=== PATIENT | male | born 1945 | race Caucasian/White ===

== ENCOUNTER → 2016-04-05 | Outpatient (CLI) | payer MEDICARE, OTHER ==
--- NOTE | 2016-04-04 09:21 | NUR ---
NN PT STATES HE HAD CALLED AND CANCELLED HIS COLONOSCOPY. HE HAD AN UNEXPECTED SURGERY COME UP ON SATURDAY AND IS NOT RECOVERED TO PROCEED WITH COLONOSCOPY AT THIS TIME. HE WILL BE OUT OF TOWN FOR 4 WEEKS AND WILL THEN RESCHEDULE AFTER THAT.
== END ==
LOC: EDSTATUS 07:30 → SCU 08:00
PROVIDERS: ATTEND Family Medicine
DX: Z53.9 Procedure and treatment not carried out, unspecified reason (principal)

== ENCOUNTER 2016-07-05 05:56 | Day surgery (SDC) | payer MEDICARE, OTHER ==
[~2016-07-05] VITALS: Ht 180.3 cm; Wt 117.1 kg
[~2016-07-05 05:56] MED LIST: AMLO5TAB2 PO; ATOR20TA59 PO; HYDR25TA PO; INSU100I3; INSU100V8 INJ; LOSA100T44 PO; MELO-267 PO; METO100T5 PO
[2016-07-05 06:05] VITALS: BP 157/71; PULSE 63; RESP 16; TEMP 99.1; O2SAT 92
[2016-07-05 06:33] VITALS: Ht 180.3 cm; Wt 117.1 kg
--- NOTE | 2016-07-05 06:57 | ANESPREOP ---
Anesthesia Record Date and Time DATE: 07/05/16 TIME: 06:55 Proposed Surgical Procedure COLONOSCOPY NPO since: 07/04 Allergies: Coded Allergies: oxycodone (Verified Allergy, Mild, ITCHING, 07/05/16) Penicillins (Verified Allergy, Unknown, RASH, 07/05/16) metformin (Verified Adverse Reaction, Intermediate, swollen anus, 07/05/16) Ht/Wt/BMI Height: 5 ' 11.00 " Weight: 117.100 kg BMI: 36.0 kg/m2 Vital Signs Date Time Temp Pulse Resp B/P Pulse Ox O2 Delivery O2 Flow Rate FiO2 07/05/16 06:05 99.1 63 16 157/71 92 Room Air Medications Inpatient Medications Current Medications Medications (Trade) Dose Ordered Sig/Josselyn Start Time Stop Time Status Last Admin Dose Admin Lactated Ringer's (Lactated Ringers) 1,000 ml @ 50 mls/hr Q20H 07/05/16 07:00 07/05/16 06:43 50 MLS/HR Amlodipine Besylate (Amlodipine Besylate) 5 Mg Tablet, 2 TAB PO DAILY, (Reported ) Last Taken: on 07/04/162229 Atorvastatin Calcium (Atorvastatin Calcium) 20 Mg Tablet, 1 TAB PO DAILY, (Reported) Last Taken: on 07/04/16729 Hydrochlorothiazide (Hydrochlorothiazide) 25 Mg Tablet, 1 TAB PO DAILY, (Reported) Last Taken: on 07/04/16729 Insulin Aspart (Novolog Flexpen) 1 Unit Pen, ( Reported) Last Taken: on 07/04/16 1400 Insulin Glargine,Hum.rec.anlog (Lantus) 100 Unit/Ml Inj, 40-50 UNIT INJ AMI, (Reported) Last Taken: on 07/04/16729 Losartan Potassium (Losartan Potassium) 100 Mg Tablet, 1 TAB PO DAILY, (Reported) Last Taken: on 07/04/16729 Meloxicam (Meloxicam) 15 Mg Tablet, 1 TAB PO DAILY, (Reported) Last Taken: on 07/01/16 Metoprolol Tartrate (Metoprolol Tartrate) 100 Mg Tablet, 2 TAB PO DAILY, (Reported) Last Taken: on 07/04/162229 Currently on Beta Tenzin: Yes Beta Tenzin Last Taken: 07/04/162229 Medical/Surgical History Anesthesia PMH: Reports: *Diabetes, *Hypertension, Arthritis, Sleep Apnea, Denies: Anesthesia Reactions (NO AIRWAY ISSUES, NAUSEA), Cancer, Clotting Problems, Glaucoma, Malignant Hyperthermia, Thyroid Disease Smoking Status: Never smoker Has pt. smoked today?: No Use Chewing Tobacco?: No Second Hand Exposure: No Substance Use Type: does not use Alcohol Intake: daily (glass of wine per day) Past Surgical History Orthopedic Surgeries: Yes - CTR-R, KNEE SCOPE-R Abdominal Surgeries: Genitourinary Surgeries: Cardiac Surgeries: Endocrine Surgeries: Reproductive Surgeries: Neurological Surgeries: Ear Surgeries: Nose Surgeries: Throat Surgeries: Yes - TONSILS-AGE 10 Other Surgeries: Yes - BUNIONECTOMY,ANAL FISTULA Anesthesia Adverse Reactions: FOUND nausea and vomiting Airway Assessment Mallampati Score: II TMD: 3 Fingerbreadths Neck Extension: Good Overall Assessment: No Airway Concerns ASA: 2 Plan Anesthesia Plan: TIVA Discussion Discussed risks/options/alternatives of anesthesia and questions answered. Patient consents. Nursing pain assessment noted. Attestation Statement Prior to the delivery of any anesthetic medication, I examined the patient, developed the plan, obtained the patient's consent and discussed the risk and benefits of the procedure with the patient/guardian. IVAN POMPA July 05, 2016 06:57
[2016-07-05] MEDS ORDERED: LR 1,000 ML IV SCH (07:00)
[2016-07-05] MEDS ORDERED: LIDOCAINE 1% (10mg/ml) 2ml SDV INJ ONE (07:00)
[2016-07-05] MEDS ORDERED: LIDOCAINE 1% (10mg/ml) 2ml SDV ONE (07:12)
[2016-07-05] MEDS ORDERED: PROPOFOL 500mg 50 ML IV ONE (07:12)
--- NOTE | 2016-07-05 07:19 | ANESPREOP ---
Anesthesia Record Date and Time DATE: 07/05/16 TIME: 07:15 Proposed Surgical Procedure COLONOSCOPY NPO since: 07/04 Allergies: Coded Allergies: oxycodone (Verified Allergy, Mild, ITCHING, 07/05/16) Penicillins (Verified Allergy, Unknown, RASH, 07/05/16) metformin (Verified Adverse Reaction, Intermediate, swollen anus, 07/05/16) Ht/Wt/BMI Height: 5 ' 11.00 " Weight: 117.100 kg BMI: 36.0 kg/m2 Vital Signs Date Time Temp Pulse Resp B/P Pulse Ox O2 Delivery O2 Flow Rate FiO2 07/05/16 06:05 99.1 63 16 157/71 92 Room Air Medications Inpatient Medications Current Medications Medications (Trade) Dose Ordered Sig/Josselyn Start Time Stop Time Status Last Admin Dose Admin Lactated Ringer's (Lactated Ringers) 1,000 ml @ 50 mls/hr Q20H 07/05/16 07:00 07/05/16 06:43 50 MLS/HR Amlodipine Besylate (Amlodipine Besylate) 5 Mg Tablet, 2 TAB PO DAILY, (Reported ) Last Taken: on 07/04/162229 Atorvastatin Calcium (Atorvastatin Calcium) 20 Mg Tablet, 1 TAB PO DAILY, (Reported) Last Taken: on 07/04/16729 Hydrochlorothiazide (Hydrochlorothiazide) 25 Mg Tablet, 1 TAB PO DAILY, (Reported) Last Taken: on 07/04/16729 Insulin Aspart (Novolog Flexpen) 1 Unit Pen, ( Reported) Last Taken: on 07/04/16 1400 Insulin Glargine,Hum.rec.anlog (Lantus) 100 Unit/Ml Inj, 40-50 UNIT INJ AMI, (Reported) Last Taken: on 07/04/16729 Losartan Potassium (Losartan Potassium) 100 Mg Tablet, 1 TAB PO DAILY, (Reported) Last Taken: on 07/04/16729 Meloxicam (Meloxicam) 15 Mg Tablet, 1 TAB PO DAILY, (Reported) Last Taken: on 07/01/16 Metoprolol Tartrate (Metoprolol Tartrate) 100 Mg Tablet, 2 TAB PO DAILY, (Reported) Last Taken: on 07/04/162229 Currently on Beta Tenzin: Yes Beta Tenzin Last Taken: 07/04/162229 Medical/Surgical History Anesthesia PMH: Reports: *Diabetes, *Hypertension, Arthritis, Sleep Apnea, Denies: Anesthesia Reactions (NO AIRWAY ISSUES, NAUSEA), Cancer, Clotting Problems, Glaucoma, Malignant Hyperthermia, Thyroid Disease Smoking Status: Never smoker Has pt. smoked today?: No Use Chewing Tobacco?: No Second Hand Exposure: No Substance Use Type: does not use Substance last used: unknown Alcohol Intake: daily (glass of wine per day) Last Drink: unknown Past Surgical History Orthopedic Surgeries: Yes - CTR-R, KNEE SCOPE-R Abdominal Surgeries: Genitourinary Surgeries: Cardiac Surgeries: Endocrine Surgeries: Reproductive Surgeries: Neurological Surgeries: Ear Surgeries: Nose Surgeries: Throat Surgeries: Yes - TONSILS-AGE 10 Other Surgeries: Yes - BUNIONECTOMY,ANAL FISTULA Anesthesia Adverse Reactions: FOUND nausea and vomiting Family Hx of Anesthesia Advers: none Hx of Motion Sickness: No Pertinent Findings EKG Rhythm: Sinus Rhythm Physical Exam Respiratory: Bilat breath sounds equal, Lungs clear Cardiovascular: FOUND Regular rate, rhythm, FOUND No murmur Airway Assessment Mallampati Score: II TMD: 3 Fingerbreadths Neck Extension: Good Overall Assessment: No Airway Concerns ASA: 2 Plan Anesthesia Plan: TIVA Discussion Discussed risks/options/alternatives of anesthesia and questions answered. Patient consents. Nursing pain assessment noted. Present: Spouse Attestation Statement Prior to the delivery of any anesthetic medication, I examined the patient, developed the plan, obtained the patient's consent and discussed the risk and benefits of the procedure with the patient/guardian. LIZETTE ORTEGA CRNA July 05, 2016 07:19
[2016-07-05 08:01] VITALS: BP 92/55; PULSE 65; RESP 14; TEMP 97.8; O2SAT 95
[2016-07-05 08:16] VITALS: BP 122/57; PULSE 65; RESP 16; O2SAT 97
[2016-07-05 08:31] VITALS: BP 120/56; PULSE 64; RESP 14; TEMP 98.4; O2SAT 97
--- NOTE | 2016-07-05 08:32 | ANESPO ---
Post-Op Note Date 07/05/16 Status Pt Participated in Evaluation: Pt participated in person Vital Signs Date Time Temp Pulse Resp B/P Pulse Ox O2 Delivery O2 Flow Rate FiO2 07/05/16 08:16 65 16 122/57 97 Room Air 07/05/16 08:01 97.8 Respiratory Function: Airway patent Cardiovascular Function: Regular pulse Mental Status: Alert/oriented Pain Level Intensity: 0 Hydration: Taking po fluids Complications during Recovery None apparent Follow-Up Instructions Instructions Per Surgeon IVAN POMPA July 05, 2016 08:32
--- NOTE | 2016-07-05 13:28 | OPNOTEF ---
DATE OF PROCEDURE: 07/05/2016 SURGEON: Mian Guaman MD PREOPERATIVE DIAGNOSIS Colorectal cancer surveillance. POSTOPERATIVE DIAGNOSES Colorectal cancer surveillance, mild diverticulosis. PROCEDURE: Colonoscopy. ANESTHESIA: TIVA. BRIEF HISTORY/INDICATIONS Rubin is a 71-year-old patient of Dr. Bowser who is due for colonoscopy. After discussing colorectal cancer it was decided to proceed with a colonoscopy. For completeness please refer to his office notes. FINDINGS Upon colonoscopy there was no evidence for angiodysplastic lesions, polyps or bryant malignancies. The patient was found to have mild diverticulosis within the ascending colon and cecum. Interestingly enough, there were no diverticula within the sigmoid colon. NARRATIVE OF PROCEDURE After informed consent was obtained, the patient was brought to the endoscopy suite and placed on the table in the left lateral decubitus position. The patient subsequently underwent total intravenous anesthesia by the nurse applied psychology professor per my request. Next, a digital rectal examination was performed. Normal sphincter tone. No rectal masses were appreciated. An Olympus colonoscope was inserted in the anus and advanced with the lumen of the colon under direct visualization at all times until the cecum was ascertained. Triangulation of the taenia coli, ileocecal valve and appendiceal lumen were all visualized. The scope was then slowly withdrawn, again maintaining visualization of the lumen at all times. As stated above, the entire colon was without evidence for angiodysplastic lesions, polyps or bryant malignancies. The patient was found to have mild diverticulosis within his ascending colon and cecum. The scope was continued to be withdrawn until it was brought forth back into the rectal vault. A J-maneuver was then performed. No worrisome perianal pathology was noted. The scope was allowed to straighten and was withdrawn through the anal verge. The patient tolerated the procedure without difficulty and was sent back to the preoperative area in stable condition. Secondary to the absence of findings upon this colonoscopy, the patient will not need to undergo a repeat colonoscopy until ten years from now unless new indications should arise. YE
== END 2016-07-05 08:34 | disposition home or self-care (01) ==
LOC: NSC 05:56
PROVIDERS: ATTEND Family Medicine
DX: Z12.11 Encounter for screening for malignant neoplasm of colon (principal); K57.30 Diverticulosis of large intestine without perforation or abscess without bleeding; G47.33 Obstructive sleep apnea (adult) (pediatric); E11.9 Type 2 diabetes mellitus without complications; E66.9 Obesity, unspecified; Z68.36 Body mass index [BMI] 36.0-36.9, adult; I10 Essential (primary) hypertension; E78.2 Mixed hyperlipidemia; Z79.4 Long term (current) use of insulin; Z79.1 Long term (current) use of non-steroidal anti-inflammatories (NSAID); Z79.899 Other long term (current) drug therapy
CPT/HCPCS: 82948; G0121; J7120